=== PATIENT | male | born 1980 | race Caucasian/White ===

== ENCOUNTER 2024-07-17 16:09 | Emergency (ER) | payer BC, SELFPAY ==
[2024-07-17 16:10] VITALS: BMI 30.9
[2024-07-17 16:18] VITALS: BP 158/99
--- NOTE | 2024-07-17 16:25 | ED.PDOC.TRB ---
ED Provider Triage
-
Patient seen by provider in Triage?: Seen in Triage
44-year-old male with onset of jaw pain and chest pain today while working outside washing his hot tub. The pain has been intermittent since it started. Pain started just prior to arrival. Pain is not pleuritic he is not short of breath. Of
note, patient returned from [place] yesterday. No prior medical history. EKG shows sinus. Check labs including D-dimer. Chest x-ray ordered. BP 158/99 at triage.
[2024-07-17 16:54] LABS: ALT (SGPT) 50 U/L (0-50); AST (SGOT) 43 U/L (17-59); Albumin 4.7 g/dl (3.5-5.0); Alkaline Phosphatase 57 U/L (38-126); Blood Urea Nitrogen 15 mg/dl (9-20); Carbon Dioxide 26 mmol/L (22-30); Chloride 105 mmol/L (98-107); Glucose 97 mg/dl (70-99); Potassium 4.4 mmol/L (3.5-5.1); Sodium 143 mmol/L (135-145); Total Bilirubin 0.7 mg/dl (0.2-1.3); Total Protein 7.5 g/dl (6.3-8.2); eGFR > 60.00
[2024-07-17 16:58] LABS: % Basophils 0.7 % (0-2); % Eosinophils 2.1 % (0-6); % Immature Granulocytes 0.3 % (0-0.5); % Lymphocytes 38.3 % (20.5-51.1); % Monocytes 7.3 % (1.7-9.3); % Neutrophils 51.3 % (42.2-75.2); Absolute Basophils 0.1 10^3/uL (0-0.2); Absolute Eosinophils 0.2 10^3/uL (0-0.7); Absolute Lymphocytes 3.3 10^3/uL (1.2-3.4); Absolute Monocytes 0.6 10^3/uL (0.1-0.6); Absolute Neutrophils 4.4 10^3/uL (1.4-6.5); Hematocrit 41.8 % (39.0-52.0); Hemoglobin 15.6 g/dL (13.0-18.0); Mean Corp Hgb Conc. 37.3 g/dL (33.0-37.0); Mean Corpuscular Hgb 31.3 pg (27.0-31.0); Mean Corpuscular Volume 83.9 fL (80.0-94.0); Nucleated Red Blood Cells % 0 % (-); Red Blood Cell Count 4.98 10^6/uL (4.70-6.10); Red Cell Dist. Width 12.2 % (11.5-14.5); White Blood Cell Count 8.6 10^3/uL (4.8-10.8)
[2024-07-17 17:18] LABS: D-Dimer < 0.27 ug/mlFEU (0.00-0.50)
[2024-07-17 17:30] LABS: Mean Platelet Volume 10.4 fL (7.4-10.4); Platelet Count 171 10^3/uL (130-400)
[2024-07-17 18:17] LABS: Troponin I < 0.012 ng/ml
--- NOTE | 2024-07-17 18:28 | ED.GENMED ---
History of Present Illness
General
Chief Complaint: Cardiac Symptoms
Time Seen by Provider: 07/17/24 17:18
History of Present Illness
History of Present Illness:
44-year-old male with no past medical history presents to the emergency department for evaluation of abrupt onset bilateral jaw pain and chest discomfort that began approximately 2 hours ago while cleaning his hot tub. He states that he was not
exerting himself and he was not bent over very far. Pain began as pressure in his jaw all lasting approximately 20 minutes before radiating to the chest. Symptoms avulsed and subsided. Denies any tobacco use. Has no prior history of
cardiovascular disease
Review of Systems
Review of Systems
Allergies reviewed?: Yes
All Other Systems: ROS reviewed and negative except as documented in HPI and ROS
Phy Exam
Physical Exam
Physical Exam:
GEN: Well appearing, NAD, WDWN
HEENT: Oral mucosa moist, no scleral icterus
Cardiac: Regular rateAnd rhythm, no murmurs
Lung: No respiratory distress, no tachypnea
MSK: No gross deformity or injuries
Skin: Good color, no pallor or jaundice, no rashes
Neuro: AO x3, moves all extremities freely
Psych: Calm, cooperative
Scores
Heart Score for Chest Pain Patients
STEMI patient?: No
History: Slightly or Non-Suspicious
ECG: Normal
Age: </= 45 years
Risk Factors: No Risk Factors
Troponin: </= Normal Limit
Heart Score for Chest Pain Patients: 0
Heart Score Risk: 2.5% MACE over next 6 weeks
Course
Orders/Labs/Results
Orders:
Orders
07/17/24 16:11
EKG [Electrocardiogram (*1)] Urgent
Reason for Study: Chest Pain
EKG- Treatment ONCE
07/17/24 16:19
Electrocardiogram (*1) Urgent
Reason for Study: Chest Pain
EKG- Treatment ONCE
07/17/24 16:25
CR Chest - 2 Views Urgent
Comment:
Reason For Exam: chest pain
07/17/24 16:29
Complete Blood Count/With Diff Urgent
Comprehensive Metabolic Panel Urgent
D-Dimer Urgent
07/17/24 17:48
Troponin I Urgent
Abnormal Lab Results
07/17/24
16:29
MCH 31.3 H pg
(27.0-31.0)
MCHC 37.3 H g/dL
(33.0-37.0)
07/17/24 16:29
07/17/24 16:29
Vital Signs
Initial and Last Documented VS:
Initial Vital Signs
Temp Pulse Resp BP Pulse Ox
98.4 F 80 18 158/99 99
07/17/24 16:18 07/17/24 16:18 07/17/24 16:18 07/17/24 16:18 07/17/24 16:18
Last Documented Vital Signs
Temp Pulse Resp BP Pulse Ox
98.6 F 80 18 158/99 99
07/17/24 17:57 07/17/24 16:18 07/17/24 16:18 07/17/24 16:18 07/17/24 16:18
MDM/Problems Addressed
MDM/Problems Addressed:
Patient's brief episodic discomfort is not likely acute coronary syndrome evidenced by his lack of significant risk factors, reassuring EKG, and negative troponin. He has no ongoing symptoms at this time. Certainly could have been a
musculoskeletal etiology versus GERD. Recommend primary care follow-up if symptoms persist
Comment
Comment:
EKG independently interpreted by me shows normal sinus rhythm with no ST changes concerning for ischemia
*Critical Care Note
Total Time (30-74mins, 75-104mins- exclusive of procedures): Not Applicable
ED Attending Note
-
Portions of this chart may have been created with voice recognition software.� Occasional wrong word or��sound alike� substitutions may have occurred due to the inherent limitations of voice recognition software.
Discharge Plan
Departure
Patient Disposition: Home (Routine Discharge)
Date of Disposition: 07/17/24
Time of Disposition: 18:28
Patient with high blood pressure during this ER visit?: No
Discharge Problem:
Chest pain
Instructions: Chest Pain (DC)
Referrals:
Manish Godoy, DO [Family Provider] -
Activity Restrictions/Additional Instructions:
Your labs and EKG were normal
I do not suspect a heart problem causing your symptoms
Follow up with your primary doctor if symptoms reoccur
Interventions
Interventions:
*Risk Screen - Suicide Last Done: 07/17/24 17:45
*General Assessment Last Done: 07/17/24 17:45
*Neglect/Abuse Screening Last Done: 07/17/24 17:45
*ED COVID-19 Vaccine History Last Done: 07/17/24 17:45
*Nursing Disposition Last Done: 07/17/24 18:44
ED- Pulmonary Assessment Last Done: 07/17/24 17:48
ED- Cardiac Assessment Last Done: 07/17/24 17:48
Discharge Date and Time
Print Language: [id number]
== END 2024-07-17 18:44 | disposition home or self-care (01) ==
LOC: EMR 16:09
PROVIDERS: Physician Assistant; EMERGENCY PHYSICIAN Emergency Medicine; FAMILY PHYSICIAN Family Medicine
DX: R07.89 Other chest pain (principal); R68.84 Jaw pain
CPT/HCPCS: 99283; 71046; 80053; 84484; 85025; 85379; 93005

== ENCOUNTER → 2024-12-08 14:54 | Outpatient (REF) | payer BC, SELFPAY | LOC: HWRCS 14:54 | PROVIDERS: ATTENDING PHYSICIAN Internal Medicine Cardiovascular Disease; FAMILY PHYSICIAN Physician Assistant Medical | DX: R07.89 Other chest pain (principal); R42 Dizziness and giddiness | CPT/HCPCS: 93306 ==

== ENCOUNTER 2025-01-23 06:20 | Day surgery (SDC) | payer BC, SELFPAY | END 2025-01-23 15:19 | disposition home or self-care (01) | LOC: GI 06:20 | PROVIDERS: ATTENDING PHYSICIAN Internal Medicine Gastroenterology; FAMILY PHYSICIAN Physician Assistant Medical | DX: Z12.11 Encounter for screening for malignant neoplasm of colon (principal); Z83.719 Family history of colon polyps, unspecified; K64.9 Unspecified hemorrhoids | CPT/HCPCS: G0105 ==